=== PATIENT | female | born 1935 | race Caucasian/White ===

== ENCOUNTER 2021-09-25 20:49 | Inpatient (IN) ==
[2021-09-25 22:17] LABS: ABS Lymphocytes 0.4 10^3/ul (1.0-4.8); ABS Monocytes 1.3 10^3/ul (0-0.8); ABS Neutrophils 11.2 10^3/ul (1.5-7.7); Hematocrit 45 % (35-47); Hemoglobin 14.7 g/dL (12.0-16.0); Mean Corpuscular HGB Conc 33 g/dL (31-36); Mean Corpuscular Hemoglobin 32 pg (27-31); Mean Corpuscular Volume 95 fL (80-97); Mean Platelet Volume 9.7 fL (7.4-10.4); Platelet Count 201 10^3/uL (150-450); Red Blood Count 4.67 10^6 /uL (3.70-4.87); Red Cell Distribution Width 14 % (10-15); White Blood Count 12.9 10^3/uL (3.5-10.8)
[2021-09-25 22:35] LABS: Anion Gap 13 mmol/L (2-11); CO2 Carbon Dioxide 24 mmol/L (22-32); Calcium 9.3 mg/dL (8.6-10.3); Chloride 101 mmol/L (101-111); Potassium 4.5 mmol/L (3.5-5.0); Sodium 138 mmol/L (135-145)
[2021-09-25 22:41] LABS: ALT 25 U/L (7-52); AST 64 U/L (13-39); Albumin/Globulin Ratio 1.6 (1-3); Alcohol, S < 13 mg/dL (<13); Alkaline Phosphatase 80 U/L (35-149); Blood Urea Nitrogen 21 mg/dL (6-24); Creatine Kinase 1950 U/L (10-223); Globulin 2.5 g/dL (2-4); Glucose 90 mg/dL (70-100); Total Protein 6.5 g/dL (6.4-8.9); eGFR CKD-EPI 69.5 (>60)
[2021-09-25 22:44] LABS: High Sens Troponin Baseline 317 pg/mL (<15)
[2021-09-25 22:58] LABS: Urine Appearance Clear; Urine Bilirubin Negative (Negative); Urine Blood 1+ (Negative); Urine Color Yellow; Urine Glucose Negative (Negative); Urine Ketones 1+ (Negative); Urine Nitrite Negative (Negative); Urine Protein 1+(30 mg/dL) (Negative); Urine Specific Gravity 1.017 (1.002-1.030); Urine Urobilinogen Negative (Negative)
[2021-09-25 23:00] LABS: Urine Bacteria Absent (Absent); Urine Red Blood Cell Trace(0-2/hpf) (Absent); Urine White Blood Cell Trace(0-5/hpf) (Absent)
[2021-09-25 23:41] LABS: TSH Ultra Thyroid Stim Horm 0.18 mcIU/mL (0.34-5.60)
[2021-09-26 00:02] LABS: High Sensitivity Troponin 1 Hr 281 pg/mL (<15)
[2021-09-26] MEDS ORDERED: NS 0.9% 1000 ml BAG 1,000 ML IV SCH ×2 (04:45→11:30)
[2021-09-26] MEDS ORDERED: Warfarin per PHARMACY **NOTE FOLLOW UP SCH (05:00)
[2021-09-26 06:29] LABS: Hematocrit 40 % (35-47); Hemoglobin 13.6 g/dL (12.0-16.0); Mean Corpuscular HGB Conc 34 g/dL (31-36); Mean Corpuscular Hemoglobin 32 pg (27-31); Mean Corpuscular Volume 94 fL (80-97); Mean Platelet Volume 9.7 fL (7.4-10.4); Platelet Count 202 10^3/uL (150-450); Red Cell Distribution Width 14 % (10-15); White Blood Count 13.4 10^3/uL (3.5-10.8)
[2021-09-26] MEDS ORDERED: Acetaminophen IV 1 GM/100ML 100 ML IV ONE ×2 (06:47→08:27)
[2021-09-26] MEDS ORDERED: D5W 1/2 NS 1000 ml BAG 1,000 ML IV SCH (07:00)
[2021-09-26] MEDS ORDERED: metroNIDAZOLE IV 500 MG/100ML - ED ONCE IVPB ONE (07:00)
[2021-09-26 07:07] LABS: C Reactive Protein 89.77 mg/L (<8.01); Magnesium 1.9 mg/dL (1.9-2.7); Phosphorus 3.8 mg/dL (2.5-5.0); eGFR CKD-EPI 69.5 (>60)
[2021-09-26] MEDS ORDERED: Remdesivir 100 mg Vial 200 MG in NS 0.9% 250 ml 210 ML IV ONE (07:30)
[2021-09-26 08:11] LABS: INR 1.48 (0.86-1.15)
[2021-09-26 08:40] LABS: Erythrocyte Sed Rate 27 mm/Hr (0-29)
[2021-09-26 08:58] LABS: ABS Lymphocytes 0.6 10^3/ul (1.0-4.8); ABS Monocytes 1.6 10^3/ul (0-0.8); ABS Neutrophils 11.1 10^3/ul (1.5-7.7); Lymphocyte % 4.7 %; RBC Morphology Normal (Normal)
[2021-09-26] MEDS ORDERED: PREDNISONE 2.5 MG PO SCH (09:00)
[2021-09-26 09:02] LABS: Albumin 3.7 g/dL (3.2-5.2); Potassium 4.1 mmol/L (3.5-5.0); Total Bilirubin 0.7 mg/dL (0.2-1.0)
[2021-09-26 09:08] LABS: Albumin/Globulin Ratio 1.4 (1-3); Globulin 2.6 g/dL (2-4); Total Protein 6.3 g/dL (6.4-8.9); eGFR CKD-EPI 59.1 (>60)
[2021-09-26] MEDS: cefTRIAXone 1 gm/50 mL D5W 1 GM/50 ML BAG IV SCH (09:18)
[2021-09-26] MEDS ORDERED: Acyclovir IV 500 MG/10 ML 100 ML VIAL (500 MG) IVPB SCH (12:00)
[2021-09-26] MEDS ORDERED: Acyclovir IV 500 MG in NS 0.9% 100 ml BAG 100 ML IVPB SCH (12:00)
[2021-09-26] MEDS: metroNIDAZOLE IV 500 MG/100ML 500 MG/100 ML BAG IVPB SCH (16:28)
[2021-09-26] MEDS: Warfarin DAILY REMINDER **NOTE FOLLOW UP SCH (17:56)
[2021-09-26] MEDS: Latanoprost 0.005% 2.5 ml BTL BOTH EYES SCH (21:59)
[2021-09-27] MEDS: metroNIDAZOLE IV 500 MG/100ML 500 MG/100 ML BAG IVPB SCH ×3 (00:07→18:00)
[2021-09-27 06:48] LABS: INR 1.78 (0.86-1.15)
[2021-09-27 07:20] LABS: Albumin 3.6 g/dL (3.2-5.2); CO2 Carbon Dioxide 18 mmol/L (22-32); Calcium 8.9 mg/dL (8.6-10.3); Chloride 106 mmol/L (101-111); Sodium 136 mmol/L (135-145)
[2021-09-27 07:26] LABS: ALT 34 U/L (7-52); Albumin/Globulin Ratio 1.3 (1-3); Alkaline Phosphatase 79 U/L (35-149); Blood Urea Nitrogen 30 mg/dL (6-24); Globulin 2.7 g/dL (2-4); Glucose 95 mg/dL (70-100); Total Protein 6.3 g/dL (6.4-8.9); eGFR CKD-EPI 68.5 (>60)
[2021-09-27 07:42] LABS: Anion Gap 12 mmol/L (2-11)
[2021-09-27 07:43] LABS: Hematocrit 41 % (35-47); Hemoglobin 13.6 g/dL (12.0-16.0); Mean Corpuscular HGB Conc 33 g/dL (31-36); Mean Corpuscular Hemoglobin 31 pg (27-31); Mean Corpuscular Volume 95 fL (80-97); Mean Platelet Volume 9.3 fL (7.4-10.4); Platelet Count 166 10^3/uL (150-450); Red Blood Count 4.39 10^6 /uL (3.70-4.87); Red Cell Distribution Width 14 % (10-15); White Blood Count 13.9 10^3/uL (3.5-10.8)
[2021-09-27 08:06] LABS: ABS Lymphocytes 0.5 10^3/ul (1.0-4.8); ABS Monocytes 1.6 10^3/ul (0-0.8); ABS Neutrophils 11.8 10^3/ul (1.5-7.7); Eosinophil % 0.2 %; Lymphocyte % 3.4 %
[2021-09-27] MEDS: cefTRIAXone 1 gm/50 mL D5W 1 GM/50 ML BAG IV SCH (08:13)
[2021-09-27 08:50] LABS: Potassium Redraw 4.1 mmol/L (3.5-5.0)
[2021-09-27] MEDS: Remdesivir 100 mg Vial 100 MG in NS 0.9% 250 ml 230 ML IV SCH (08:51)
[2021-09-27 12:39] LABS: Rheumatoid Factor 65 IU/mL (<15)
[2021-09-27] MEDS ORDERED: NS 0.9% 250 ml 250 ML IV ONE (12:39)
[2021-09-27 13:01] LABS: Vitamin B12 > 1450 pg/mL (180-914)
[2021-09-27 13:05] LABS: CRP High Sensitivity > 80.00 mg/L (<2.00)
[2021-09-27] MEDS: Metoprolol Tartrate 5 mg VIAL 5 ml VIAL (1 mg/ml) IV PRN ×2 (13:41→14:10)
[2021-09-27] MEDS: DOXYcycline 100 MG in NS 0.9% 250 ml 250 ML IVPB SCH (14:55)
[2021-09-27] MEDS: Warfarin DAILY REMINDER **NOTE FOLLOW UP SCH (17:22)
[2021-09-27] MEDS: Latanoprost 0.005% 2.5 ml BTL BOTH EYES SCH (20:20)
[2021-09-28] MEDS: metroNIDAZOLE IV 500 MG/100ML 500 MG/100 ML BAG IVPB SCH ×4 (00:15→23:58)
[2021-09-28] MEDS: DOXYcycline 100 MG in NS 0.9% 250 ml 250 ML IVPB SCH ×2 (01:45→14:45)
[2021-09-28 06:07] LABS: ABS Lymphocytes 0.6 10^3/ul (1.0-4.8); ABS Monocytes 1.2 10^3/ul (0-0.8); ABS Neutrophils 5.7 10^3/ul (1.5-7.7); Eosinophil % 0.3 %; Hematocrit 36 % (35-47); Hemoglobin 12.2 g/dL (12.0-16.0); Lymphocyte % 7.4 %; Mean Corpuscular HGB Conc 34 g/dL (31-36); Mean Corpuscular Hemoglobin 32 pg (27-31); Mean Corpuscular Volume 95 fL (80-97); Mean Platelet Volume 10.2 fL (7.4-10.4); Platelet Count 135 10^3/uL (150-450); Red Blood Count 3.81 10^6 /uL (3.70-4.87); Red Cell Distribution Width 14 % (10-15); White Blood Count 7.5 10^3/uL (3.5-10.8)
[2021-09-28 06:27] LABS: INR 1.99 (0.86-1.15)
[2021-09-28 06:32] LABS: Albumin/Globulin Ratio 1.4 (1-3); Calcium 8.6 mg/dL (8.6-10.3); Globulin 2.1 g/dL (2-4); Magnesium 1.9 mg/dL (1.9-2.7); Potassium 3.8 mmol/L (3.5-5.0); Total Bilirubin 0.5 mg/dL (0.2-1.0); Total Protein 5.1 g/dL (6.4-8.9); eGFR CKD-EPI 86.1 (>60)
[2021-09-28 06:42] LABS: Free T3 1.4 pg/mL (2.5-3.9)
[2021-09-28 06:43] LABS: Free T4 1.19 ng/dL (0.61-1.12)
[2021-09-28] MEDS ORDERED: Potassium Chlor 20 meq TAB.ER PO ONE (07:26)
[2021-09-28] MEDS ORDERED: Magnesium Sulfate 2 gm BAG 2 GM/50 ML BAG IVPB ONE (07:26)
[2021-09-28] MEDS: cefTRIAXone 1 gm/50 mL D5W 1 GM/50 ML BAG IV SCH (09:25)
[2021-09-28] MEDS: Remdesivir 100 mg Vial 100 MG in NS 0.9% 250 ml 230 ML IV SCH (10:35)
[2021-09-28] MEDS: Benzocaine/Menthol LOZ PO PRN (11:44)
[2021-09-28] MEDS: Warfarin DAILY REMINDER **NOTE FOLLOW UP SCH (17:13)
[2021-09-28 17:17] LABS: U1 RNP IgG Autoabs >8.0 U
[2021-09-28] MEDS: Latanoprost 0.005% 2.5 ml BTL BOTH EYES SCH (20:32)
[2021-09-29] MEDS: DOXYcycline 100 MG in NS 0.9% 250 ml 250 ML IVPB SCH ×2 (01:42→17:48)
[2021-09-29 07:26] LABS: Hematocrit 35 % (35-47); Hemoglobin 11.7 g/dL (12.0-16.0); Mean Corpuscular HGB Conc 33 g/dL (31-36); Mean Corpuscular Hemoglobin 32 pg (27-31); Mean Corpuscular Volume 94 fL (80-97); Mean Platelet Volume 9.3 fL (7.4-10.4); Platelet Count 138 10^3/uL (150-450); Red Cell Distribution Width 14 % (10-15); White Blood Count 6.4 10^3/uL (3.5-10.8)
[2021-09-29 07:40] LABS: ABS Lymphocytes 0.6 10^3/ul (1.0-4.8); ABS Monocytes 1.1 10^3/ul (0-0.8); ABS Neutrophils 4.6 10^3/ul (1.5-7.7); Eosinophil % 0.3 %; INR 2.16 (0.86-1.15); Lymphocyte % 9.2 %
[2021-09-29 08:03] LABS: Albumin 2.9 g/dL (3.2-5.2); Albumin/Globulin Ratio 1.5 (1-3); Calcium 8.5 mg/dL (8.6-10.3); Magnesium 1.9 mg/dL (1.9-2.7); Potassium 4.1 mmol/L (3.5-5.0); Total Bilirubin 0.4 mg/dL (0.2-1.0); Total Protein 4.9 g/dL (6.4-8.9); eGFR CKD-EPI 87.8 (>60)
[2021-09-29] MEDS: cefTRIAXone 1 gm/50 mL D5W 1 GM/50 ML BAG IV SCH (08:54)
[2021-09-29] MEDS: metroNIDAZOLE IV 500 MG/100ML 500 MG/100 ML BAG IVPB SCH ×2 (08:54→17:27)
[2021-09-29] MEDS: Benzocaine/Menthol LOZ PO PRN ×2 (08:57→23:03)
[2021-09-29] MEDS ORDERED: Magnesium Sulfate 2 gm BAG 2 GM/50 ML BAG IVPB ONE (09:30)
[2021-09-29] MEDS: Remdesivir 100 mg Vial 100 MG in NS 0.9% 250 ml 230 ML IV SCH (11:14)
[2021-09-29] MEDS: Warfarin DAILY REMINDER **NOTE FOLLOW UP SCH (17:28)
[2021-09-29] MEDS: Latanoprost 0.005% 2.5 ml BTL BOTH EYES SCH (21:53)
[2021-09-29] MEDS ORDERED: Al Hydrox/Mg Hydrox/Simet LIQ 30 ML UDC PO PRN (22:24)
[2021-09-30 05:18] LABS: Hematocrit 37 % (35-47); Hemoglobin 12.4 g/dL (12.0-16.0); Mean Corpuscular HGB Conc 34 g/dL (31-36); Mean Corpuscular Hemoglobin 32 pg (27-31); Mean Corpuscular Volume 94 fL (80-97); Platelet Count 187 10^3/uL (150-450); Red Blood Count 3.93 10^6 /uL (3.70-4.87); Red Cell Distribution Width 14 % (10-15); White Blood Count 8.5 10^3/uL (3.5-10.8)
[2021-09-30 05:21] LABS: INR 2.75 (0.86-1.15)
[2021-09-30 05:22] LABS: ABS Lymphocytes 0.9 10^3/ul (1.0-4.8); ABS Monocytes 1.2 10^3/ul (0-0.8); ABS Neutrophils 6.4 10^3/ul (1.5-7.7); Eosinophil % 0.4 %; Lymphocyte % 10.2 %
[2021-09-30 05:48] LABS: Albumin 3.1 g/dL (3.2-5.2); Albumin/Globulin Ratio 1.3 (1-3); Calcium 8.5 mg/dL (8.6-10.3); Globulin 2.3 g/dL (2-4); Potassium 4.1 mmol/L (3.5-5.0); Total Bilirubin 0.4 mg/dL (0.2-1.0); Total Protein 5.4 g/dL (6.4-8.9); eGFR CKD-EPI 86.8 (>60)
[2021-09-30] MEDS: Remdesivir 100 mg Vial 100 MG in NS 0.9% 250 ml 230 ML IV SCH (10:11)
[2021-09-30] MEDS: cefTRIAXone 1 gm/50 mL D5W 1 GM/50 ML BAG IV SCH (10:11)
[2021-09-30] MEDS: Warfarin DAILY REMINDER **NOTE FOLLOW UP SCH (17:23)
[2021-09-30] MEDS: Latanoprost 0.005% 2.5 ml BTL BOTH EYES SCH (21:04)
[2021-10-01 05:58] LABS: Hematocrit 39 % (35-47); Hemoglobin 12.5 g/dL (12.0-16.0); Mean Corpuscular HGB Conc 32 g/dL (31-36); Mean Corpuscular Hemoglobin 31 pg (27-31); Mean Corpuscular Volume 95 fL (80-97); Mean Platelet Volume 10.2 fL (7.4-10.4); Platelet Count 218 10^3/uL (150-450); Red Blood Count 4.08 10^6 /uL (3.70-4.87); Red Cell Distribution Width 15 % (10-15); White Blood Count 7.4 10^3/uL (3.5-10.8)
[2021-10-01 06:04] LABS: INR 3.82 (0.86-1.15)
[2021-10-01 06:23] LABS: Calcium 8.9 mg/dL (8.6-10.3); Potassium 4.6 mmol/L (3.5-5.0); Total Protein 5.2 g/dL (6.4-8.9); eGFR CKD-EPI 86.4 (>60)
[2021-10-01 06:24] LABS: Albumin/Globulin Ratio 1.4 (1-3); Globulin 2.2 g/dL (2-4); Total Bilirubin 0.3 mg/dL (0.2-1.0)
[2021-10-01 16:39] LABS: Complement C3 68 mg/dL (75 - 175)
[2021-10-01] MEDS ORDERED: Warfarin - No Order Today **NOTE FOLLOW UP ONE (17:00)
[2021-10-01] MEDS: Warfarin DAILY REMINDER **NOTE FOLLOW UP SCH (17:25)
[2021-10-01] MEDS ORDERED: Remdesivir 100 mg Vial 100 MG in NS 0.9% 250 ml 230 ML IV SCH (22:00)
[2021-10-02] MEDS: Latanoprost 0.005% 2.5 ml BTL BOTH EYES SCH (00:38)
[2021-10-02 06:47] LABS: Hematocrit 37 % (35-47); Hemoglobin 12.4 g/dL (12.0-16.0); Mean Corpuscular HGB Conc 33 g/dL (31-36); Mean Corpuscular Hemoglobin 31 pg (27-31); Mean Corpuscular Volume 94 fL (80-97); Mean Platelet Volume 9.8 fL (7.4-10.4); Platelet Count 255 10^3/uL (150-450); Red Blood Count 3.96 10^6 /uL (3.70-4.87); Red Cell Distribution Width 15 % (10-15); White Blood Count 9.4 10^3/uL (3.5-10.8)
[2021-10-02 06:50] LABS: ABS Basophils 0.1 10^3/ul (0-0.2); ABS Eosinophils 0.2 10^3/ul (0-0.6); ABS Lymphocytes 1.3 10^3/ul (1.0-4.8); ABS Monocytes 1.4 10^3/ul (0-0.8); ABS Neutrophils 6.4 10^3/ul (1.5-7.7); Eosinophil % 1.7 %; Lymphocyte % 13.9 %
[2021-10-02 06:59] LABS: INR 3.98 (0.86-1.15)
[2021-10-02 07:19] LABS: Calcium 8.9 mg/dL (8.6-10.3); Potassium 4.3 mmol/L (3.5-5.0); eGFR CKD-EPI 85.2 (>60)
[2021-10-02] MEDS: Warfarin DAILY REMINDER **NOTE FOLLOW UP SCH (15:04)
[2021-10-02 15:35] VITALS: BP 103/58
[2021-10-02] MEDS ORDERED: Warfarin - No Order Today **NOTE FOLLOW UP ONE (17:00)
== END 2021-10-02 16:18 | disposition swing bed (61) | DRG 871 ==
LOC: ED 20:49 → EDHOLD 09-26 04:34 → SUATTDRO 09-26 04:34 → EDHOLD 09-26 06:38 → MEDTELE 09-26 07:31
PROVIDERS: ADMIT Hospitalist; ATTEND Hospitalist

== ENCOUNTER 2021-10-02 17:08 | Inpatient (IN) ==
[2021-10-02] MEDS ORDERED: Warfarin per PHARMACY **NOTE FOLLOW UP SCH (19:00)
[2021-10-02] MEDS ORDERED: Warfarin - No Order Today **NOTE FOLLOW UP ONE (21:00)
[2021-10-02] MEDS: Latanoprost 0.005% 2.5 ml BTL BOTH EYES SCH (21:21)
[2021-10-03] MEDS ORDERED: Warfarin - No Order Today **NOTE FOLLOW UP ONE (17:00)
[2021-10-03] MEDS: Latanoprost 0.005% 2.5 ml BTL BOTH EYES SCH (20:21)
[2021-10-04 06:37] LABS: Hematocrit 39 % (35-47); Hemoglobin 12.8 g/dL (12.0-16.0); Mean Platelet Volume 9.5 fL (7.4-10.4); Platelet Count 290 10^3/uL (150-450)
[2021-10-04 06:52] LABS: INR 2.6 (0.86-1.15)
[2021-10-04 06:56] LABS: eGFR CKD-EPI 66.6 (>60)
[2021-10-04] MEDS: Latanoprost 0.005% 2.5 ml BTL BOTH EYES SCH (23:10)
[2021-10-05 06:27] LABS: INR 2.51 (0.86-1.15)
[2021-10-05] MEDS: Warfarin DAILY REMINDER **NOTE FOLLOW UP SCH (18:47)
[2021-10-05] MEDS: Latanoprost 0.005% 2.5 ml BTL BOTH EYES SCH (20:35)
[2021-10-06 07:08] LABS: INR 3.67 (0.86-1.15)
[2021-10-06] MEDS: Warfarin DAILY REMINDER **NOTE FOLLOW UP SCH (16:53)
[2021-10-06] MEDS ORDERED: Warfarin - No Order Today **NOTE FOLLOW UP ONE (17:00)
[2021-10-06] MEDS: Latanoprost 0.005% 2.5 ml BTL BOTH EYES SCH (21:04)
[2021-10-07 07:02] LABS: INR 4.04 (0.86-1.15)
[2021-10-07 11:13] LABS: Rapid COVID-19 Molecular Undetected (Undetected)
[2021-10-07] MEDS ORDERED: Warfarin - No Order Today **NOTE FOLLOW UP ONE (17:00)
[2021-10-07] MEDS: Warfarin DAILY REMINDER **NOTE FOLLOW UP SCH (17:44)
[2021-10-07] MEDS: Latanoprost 0.005% 2.5 ml BTL BOTH EYES SCH (19:56)
[2021-10-08 05:46] LABS: Hematocrit 37 % (35-47); Hemoglobin 12.3 g/dL (12.0-16.0); Mean Platelet Volume 9.4 fL (7.4-10.4); Platelet Count 264 10^3/uL (150-450)
[2021-10-08 05:49] LABS: INR 3.68 (0.86-1.15)
[2021-10-08 07:41] VITALS: BP 108/45
[2021-10-08] MEDS ORDERED: Warfarin - No Order Today **NOTE FOLLOW UP ONE (17:00)
== END 2021-10-08 17:15 | disposition home or self-care (01) | DRG 293 ==
LOC: MEDTELE 17:08 → SUATTDRO 17:08
PROVIDERS: ADMIT Hospitalist; ATTEND Internal Medicine

== ENCOUNTER 2022-01-31 14:19 | Observation (INO) ==
[2022-01-31 14:33] LABS: ABS Basophils 0.1 10^3/ul (0-0.2); ABS Lymphocytes 1.3 10^3/ul (1.0-4.8); ABS Monocytes 0.6 10^3/ul (0-0.8); ABS Neutrophils 7.8 10^3/ul (1.5-7.7); Eosinophil % 0.3 %; Hematocrit 46 % (35-47); Hemoglobin 14.6 g/dL (12.0-16.0); Lymphocyte % 13.1 %; Mean Corpuscular HGB Conc 32 g/dL (31-36); Mean Corpuscular Hemoglobin 30 pg (27-31); Mean Corpuscular Volume 94 fL (80-97); Mean Platelet Volume 8.9 fL (7.4-10.4); Platelet Count 303 10^3/uL (150-450); Red Blood Count 4.93 10^6 /uL (3.70-4.87); Red Cell Distribution Width 13 % (10-15); White Blood Count 9.7 10^3/uL (3.5-10.8)
[2022-01-31] MEDS ORDERED: Iodixanol (CONTRAST) 320 MG/ML 100 ML SDV IV ONE (14:37)
[2022-01-31 14:53] LABS: Activated Partial Thrombo Time 35.8 seconds (26.0-38.0); INR 1.11 (0.89-1.11)
[2022-01-31 15:22] LABS: Albumin/Globulin Ratio 1.5 (1-3); Calcium 9.7 mg/dL (8.6-10.3); Globulin 2.7 g/dL (2-4); HDL Cholesterol 60.7 mg/dL; Potassium 4.6 mmol/L (3.5-5.0); Total Bilirubin 0.4 mg/dL (0.2-1.0); Total Protein 6.7 g/dL (6.4-8.9); eGFR CKD-EPI 46.7 (>60)
[2022-01-31] MEDS ORDERED: NS 0.9% 500 ml BAG 500 ML IV ONE (21:46)
[2022-01-31] MEDS ORDERED: CMCS: Fidaxomicin 200 mg TAB (NF) PO SCH (22:00)
[2022-01-31 22:54] LABS: Magnesium 2.2 mg/dL (1.9-2.7)
[2022-01-31] MEDS ORDERED: Amiodarone 400 mg TAB PO SCH (23:45)
[2022-02-01 04:39] LABS: Hematocrit 40 % (35-47); Hemoglobin 13.2 g/dL (12.0-16.0); White Blood Count 14.8 10^3/uL (3.5-10.8)
[2022-02-01 04:40] LABS: ABS Eosinophils 0.1 10^3/ul (0-0.6); ABS Lymphocytes 0.5 10^3/ul (1.0-4.8); ABS Monocytes 0.8 10^3/ul (0-0.8); ABS Neutrophils 13.4 10^3/ul (1.5-7.7); Eosinophil % 0.5 %; Lymphocyte % 3.5 %; Mean Corpuscular HGB Conc 33 g/dL (31-36); Mean Corpuscular Hemoglobin 31 pg (27-31); Mean Corpuscular Volume 93 fL (80-97); Mean Platelet Volume 9.7 fL (7.4-10.4); Platelet Count 265 10^3/uL (150-450); Red Cell Distribution Width 13 % (10-15)
[2022-02-01 05:05] LABS: Calcium 8.6 mg/dL (8.6-10.3); Potassium 4.2 mmol/L (3.5-5.0); eGFR CKD-EPI 61.8 (>60)
[2022-02-01] MEDS ORDERED: Heparin DRIP 25,000 UNITS BAG 25,000 UNITS/500 ML BAG IV SCH (09:00)
[2022-02-01] MEDS ORDERED: Vitamin THERAPEUTIC TAB PO SCH (09:00)
[2022-02-01] MEDS ORDERED: Amiodarone 360 MG IVPREMIX 360 MG/200 ML BAG IV ONE (11:15)
[2022-02-01] MEDS ORDERED: Amiodarone 150 mg IVPREMIX 150 MG/100 ML BAG IV ONE (11:16)
[2022-02-01] MEDS ORDERED: Lorazepam PYXIS KEY ONE (11:18)
[2022-02-01] MEDS ORDERED: LORazepam 2 mg VIAL 1 ml ONE (11:19)
[2022-02-01] MEDS ORDERED: Heparin 2 UNITS/ML 1000 mls 1,000 ML IV ONE (11:24)
[2022-02-01] MEDS ORDERED: fentaNYL 100 mcg/2 ml 50 MCG/ML VIAL ONE (11:24)
[2022-02-01] MEDS ORDERED: Magnesium Sulfate 2 gm BAG 0 GM/0 ML BAG ONE (11:24)
[2022-02-01] MEDS ORDERED: Midazolam 5 mg/5 ml VIAL 1 mg/ml 5 ml VIAL (5 mg) ONE (11:24)
[2022-02-01] MEDS ORDERED: Lidocaine 1% MPF 5 ML VIAL ONE (11:24)
[2022-02-01] MEDS ORDERED: Magnesium Sulfate IV 1GM/100ML 1 GM/100 ML BAG IV ONE (11:26)
[2022-02-01 12:10] VITALS: BP 123/59
[2022-02-01] MEDS ORDERED: Iohexol 300 (CONTRAST) 10 ML SDV ONE ×3 (12:19→12:35)
[2022-02-01] MEDS ORDERED: Iohexol 350 (CONTRAST) 100 ML PAK IV ONE (12:31)
[2022-02-01] MEDS ORDERED: Latanoprost 0.005% 2.5 ml BTL BOTH EYES SCH (21:00)
== END 2022-02-01 13:30 | disposition short-term general hospital (02) ==
LOC: ED 14:19 → EDHOLD 14:19 → ICU 02-01 00:06
PROVIDERS: ADMIT Hospitalist; ATTEND Hospitalist

== ENCOUNTER 2022-04-27 13:25 | Inpatient (IN) ==
[2022-04-27] MEDS ORDERED: NS 0.9% 500 ml BAG 500 ML IV ONE (13:34)
[2022-04-27 14:40] LABS: Hematocrit 45 % (35-47); Hemoglobin 14.6 g/dL (12.0-16.0); Mean Corpuscular HGB Conc 33 g/dL (31-36); Mean Corpuscular Hemoglobin 30 pg (27-31); Mean Corpuscular Volume 93 fL (80-97); Mean Platelet Volume 10.1 fL (7.4-10.4); Platelet Count 168 10^3/uL (150-450); Red Blood Count 4.83 10^6 /uL (3.70-4.87); Red Cell Distribution Width 16 % (10-15); White Blood Count 22.2 10^3/uL (3.5-10.8)
[2022-04-27 15:28] LABS: Albumin 4.1 g/dL (3.2-5.2); Albumin/Globulin Ratio 1.5 (1-3); C Reactive Protein 93.62 mg/L (<8.01); Calcium 9.5 mg/dL (8.6-10.3); Globulin 2.8 g/dL (2-4); Potassium 4.6 mmol/L (3.5-5.0); Total Protein 6.9 g/dL (6.4-8.9); eGFR CKD-EPI 55.9 (>60)
[2022-04-27 16:25] LABS: High Sensitivity Troponin 1 Hr 38 pg/mL (<15)
[2022-04-27] MEDS ORDERED: cefTRIAXone 1 gm/50 mL D5W 1 GM/50 ML BAG IV ONE (16:29)
[2022-04-27] MEDS ORDERED: NS 0.9% 1000 ml BAG 1,000 ML IV SCH (18:45)
[2022-04-27 19:51] LABS: TSH Ultra Thyroid Stim Horm 3.91 mcIU/mL (0.34-5.60)
[2022-04-27 20:14] LABS: ABS Basophils 0.1 10^3/ul (0-0.2); ABS Lymphocytes 0.7 10^3/ul (1.0-4.8); ABS Monocytes 2.5 10^3/ul (0-0.8); ABS Neutrophils 18.9 10^3/ul (1.5-7.7); Lymphocyte % 3.2 %; Nucleated Red Blood Cells % 0.1
[2022-04-27] MEDS: DOXYcycline 100 MG in NS 0.9% 250 ml 250 ML IVPB SCH (20:34)
[2022-04-28 00:47] LABS: Urine Appearance Clear; Urine Bilirubin Negative (Negative); Urine Blood Negative (Negative); Urine Color Yellow; Urine Glucose Negative (Negative); Urine Ketones Trace (Negative); Urine Nitrite Negative (Negative); Urine Protein 2+(100 mg/dL) (Negative); Urine Specific Gravity 1.017 (1.002-1.030); Urine Urobilinogen Negative (Negative)
[2022-04-28 00:49] LABS: Urine Bacteria Absent (Absent); Urine Red Blood Cell Trace(0-2/hpf) (Absent); Urine White Blood Cell Trace(0-5/hpf) (Absent)
[2022-04-28 06:14] LABS: Hematocrit 40 % (35-47); Hemoglobin 12.7 g/dL (12.0-16.0); Mean Corpuscular HGB Conc 32 g/dL (31-36); Mean Corpuscular Hemoglobin 30 pg (27-31); Mean Corpuscular Volume 93 fL (80-97); Mean Platelet Volume 10.3 fL (7.4-10.4); Platelet Count 155 10^3/uL (150-450); Red Blood Count 4.33 10^6 /uL (3.70-4.87); Red Cell Distribution Width 16 % (10-15); White Blood Count 24.8 10^3/uL (3.5-10.8)
[2022-04-28 06:43] LABS: Calcium 8.3 mg/dL (8.6-10.3); eGFR CKD-EPI 62.6 (>60)
[2022-04-28 06:49] LABS: Potassium 4.1 mmol/L (3.5-5.0)
[2022-04-28 07:24] LABS: RBC Morphology Normal (Normal)
[2022-04-28 07:25] LABS: ABS Basophils 0.1 10^3/ul (0-0.2); ABS Lymphocytes 0.8 10^3/ul (1.0-4.8); ABS Monocytes 3.1 10^3/ul (0-0.8); ABS Neutrophils 20.8 10^3/ul (1.5-7.7); Eosinophil % 0.1 %; Lymphocyte % 3.3 %
[2022-04-28] MEDS: DOXYcycline 100 MG in NS 0.9% 250 ml 250 ML IVPB SCH ×2 (07:35→20:42)
[2022-04-28] MEDS: cefTRIAXone 1 gm/50 mL D5W 1 GM/50 ML BAG IV SCH (18:22)
[2022-04-28] MEDS: Latanoprost 0.005% 2.5 ml BTL BOTH EYES SCH ×2 (20:45)
[2022-04-29 06:24] LABS: Hematocrit 37 % (35-47); Mean Corpuscular HGB Conc 32 g/dL (31-36); Mean Corpuscular Hemoglobin 30 pg (27-31); Mean Corpuscular Volume 92 fL (80-97); Mean Platelet Volume 9.9 fL (7.4-10.4); Platelet Count 136 10^3/uL (150-450); Red Cell Distribution Width 16 % (10-15); White Blood Count 25.8 10^3/uL (3.5-10.8)
[2022-04-29 06:35] LABS: Calcium 8.7 mg/dL (8.6-10.3); Potassium 3.8 mmol/L (3.5-5.0)
[2022-04-29 07:07] LABS: ABS Eosinophils 0.1 10^3/ul (0-0.6); ABS Lymphocytes 0.6 10^3/ul (1.0-4.8); ABS Monocytes 3.6 10^3/ul (0-0.8); ABS Neutrophils 21.5 10^3/ul (1.5-7.7); Eosinophil % 0.4 %; Lymphocyte % 2.5 %
[2022-04-29] MEDS: DOXYcycline 100 MG in NS 0.9% 250 ml 250 ML IVPB SCH ×2 (07:45→18:44)
[2022-04-29 16:32] LABS: RBC Morphology Normal (Normal)
[2022-04-29] MEDS: cefTRIAXone 1 gm/50 mL D5W 1 GM/50 ML BAG IV SCH (17:25)
[2022-04-29] MEDS: Latanoprost 0.005% 2.5 ml BTL BOTH EYES SCH (20:34)
[2022-04-30 06:54] LABS: Calcium 8.8 mg/dL (8.6-10.3); Potassium 3.9 mmol/L (3.5-5.0)
[2022-04-30 06:55] LABS: ABS Basophils 0.1 10^3/ul (0-0.2); ABS Eosinophils 0.3 10^3/ul (0-0.6); ABS Lymphocytes 0.7 10^3/ul (1.0-4.8); ABS Monocytes 3.4 10^3/ul (0-0.8); ABS Neutrophils 19.7 10^3/ul (1.5-7.7); Eosinophil % 1.3 %; Nucleated Red Blood Cells % 0.1
[2022-04-30 07:48] LABS: Hematocrit 38 % (35-47); Hemoglobin 12.1 g/dL (12.0-16.0); Mean Corpuscular HGB Conc 32 g/dL (31-36); Mean Corpuscular Hemoglobin 30 pg (27-31); Mean Corpuscular Volume 93 fL (80-97); Mean Platelet Volume 10.3 fL (7.4-10.4); Platelet Count 143 10^3/uL (150-450); Red Blood Count 4.04 10^6 /uL (3.70-4.87); Red Cell Distribution Width 15 % (10-15); White Blood Count 24.3 10^3/uL (3.5-10.8)
[2022-04-30] MEDS: DOXYcycline 100 MG in NS 0.9% 250 ml 250 ML IVPB SCH ×2 (08:25→20:30)
[2022-04-30] MEDS: cefTRIAXone 1 gm/50 mL D5W 1 GM/50 ML BAG IV SCH (17:47)
[2022-04-30] MEDS: Latanoprost 0.005% 2.5 ml BTL BOTH EYES SCH (20:29)
[2022-05-01 06:22] LABS: Hematocrit 37 % (35-47); Hemoglobin 12.3 g/dL (12.0-16.0); Mean Corpuscular HGB Conc 33 g/dL (31-36); Mean Corpuscular Hemoglobin 31 pg (27-31); Mean Corpuscular Volume 93 fL (80-97); Mean Platelet Volume 10.3 fL (7.4-10.4); Platelet Count 167 10^3/uL (150-450); Red Blood Count 4.02 10^6 /uL (3.70-4.87); Red Cell Distribution Width 16 % (10-15); White Blood Count 16.5 10^3/uL (3.5-10.8)
[2022-05-01 06:28] LABS: ABS Eosinophils 0.3 10^3/ul (0-0.6); ABS Lymphocytes 0.8 10^3/ul (1.0-4.8); ABS Monocytes 2.5 10^3/ul (0-0.8); ABS Neutrophils 12.9 10^3/ul (1.5-7.7); Eosinophil % 1.7 %; Lymphocyte % 4.9 %
[2022-05-01 06:49] LABS: Calcium 8.8 mg/dL (8.6-10.3); Magnesium 1.6 mg/dL (1.9-2.7); eGFR CKD-EPI 85.6 (>60)
[2022-05-01] MEDS ORDERED: Magnesium Sulfate 2 gm BAG 2 GM/50 ML BAG IVPB ONE (08:09)
[2022-05-01] MEDS: DOXYcycline 100 MG in NS 0.9% 250 ml 250 ML IVPB SCH (09:44)
[2022-05-01] MEDS ORDERED: Loperamide LIQ 2 MG/15 ML UDC PO PRN (10:47)
[2022-05-01] MEDS ORDERED: Perflutren Lipid Microsphere 3 ML VIAL ONE (11:43)
[2022-05-01] MEDS ORDERED: cefTRIAXone 1 GM Q24H (ADVAN) IVPB SCH (17:00)
[2022-05-01] MEDS: Latanoprost 0.005% 2.5 ml BTL BOTH EYES SCH (21:42)
[2022-05-02 06:45] LABS: Hematocrit 42 % (35-47); Hemoglobin 13.2 g/dL (12.0-16.0); Mean Corpuscular HGB Conc 32 g/dL (31-36); Mean Corpuscular Hemoglobin 31 pg (27-31); Mean Corpuscular Volume 97 fL (80-97); Mean Platelet Volume 9.6 fL (7.4-10.4); Platelet Count 189 10^3/uL (150-450); Red Blood Count 4.31 10^6 /uL (3.70-4.87); Red Cell Distribution Width 17 % (10-15); White Blood Count 10.4 10^3/uL (3.5-10.8)
[2022-05-02 07:01] LABS: Calcium 8.9 mg/dL (8.6-10.3); Magnesium 1.9 mg/dL (1.9-2.7); Potassium 4.3 mmol/L (3.5-5.0); eGFR CKD-EPI 86.9 (>60)
[2022-05-02 09:12] LABS: ABS Eosinophils 0.3 10^3/ul (0-0.6); ABS Lymphocytes 0.7 10^3/ul (1.0-4.8); ABS Monocytes 2.3 10^3/ul (0-0.8); Lymphocyte % 7.1 %; Nucleated Red Blood Cells % 0.2
[2022-05-02 10:57] VITALS: BP 103/67
== END 2022-05-02 15:16 | disposition home or self-care (01) | DRG 193 ==
LOC: ED 13:25 → EDHOLD 13:25 → SUATTDRO 18:33 → MED 04-28 16:25 → SUATTDRO 04-29 18:54
PROVIDERS: ADMIT Internal Medicine; ATTEND Internal Medicine